=== PATIENT | female | born 1945 | race Caucasian/White ===

== ENCOUNTER 2017-02-15 05:46 | Day surgery (SDC) | END 2017-02-15 09:25 | disposition home or self-care (01) | DX: H25.11 Age-related nuclear cataract, right eye (principal); I10 Essential (primary) hypertension; E78.5 Hyperlipidemia, unspecified | CPT/HCPCS: 66984; 71010; J0171; J0690; J1100; J1580; J2250; J2405; J3010; V2632 ==

== ENCOUNTER 2017-07-10 06:20 | Emergency (ER) | END 2017-07-10 10:35 | disposition home or self-care (01) ==

== ENCOUNTER 2017-09-20 20:15 | Emergency (ER) | END 2017-09-21 01:56 | disposition left against medical advice (07) ==

== ENCOUNTER 2018-08-25 17:13 | Observation (INO) | payer OTHER ==
[~2018-08-25] VITALS: Ht 152.4 cm; Wt 64.0 kg
[~2018-08-25 17:13] MED LIST: ALBU8.5H8 INH; AMLO-145 PO; ATOR20TA38 PO; OSEL75CA23 PO
[2018-08-25] MEDS ORDERED: ASPI-903 PO (20:21)
[2018-08-25] MEDS ORDERED: SOD CHLORIDE 0.9% 500 ML IV STA (21:08)
--- NOTE | 2018-08-25 21:12 | ERD ---
ER Documentation Chief Complaint Chief Complaint CHEST PAIN RADIATING DOWN LT ARM. ARM NUMBNESS HPI 73-year-old woman complaining of unprovoked pressure-like chest discomfort beginning at rest at about noon and lasting for about 6 hours. She states the pain radiated toward her left side and was associated with nausea. She denies prior episodes, she had no fever or chills, no cough, no vomiting or diaphoresis, no headache or blurry vision. Patient does use aspirin daily. ROS All systems reviewed and are negative except as per history of present illness. Medications Home Meds Active Scripts Albuterol Sulfate* (Proair HFA*) 8.5 Gm Hfa.aer.ad, 2 PUFF INH Q4, #1 INHALER Prov:BLAINE SENA DO 07/10/17 Reported Medications Aspirin* (Aspirin* Chew) 81 Mg Tab.chew, 81 MG PO DAILY, TAB.CHEW 08/25/18 Atorvastatin Calcium* (Atorvastatin Calcium*) 20 Mg Tablet, 20 MG PO QHS, #30 TAB 02/15/17 Amlodipine Besylate* (Amlodipine Besylate*) 5 Mg Tablet, 5 MG PO DAILY 09/18/13 Discontinued Scripts Oseltamivir Phosphate* (Tamiflu*) 75 Mg Capsule, 75 MG PO BID for 5 Days, CAP Prov:BLAINE SENA DO 07/10/17 Allergies Allergies: Coded Allergies: No Known Drug Allergies (Verified Allergy, Unknown, 10/03/13) PMhx/Soc Hypertension History of Surgery: Yes (LIVER SX 2014,HYSTERECTOMY 28 YEARS AGO) Anesthesia Reaction: No Hx Neurological Disorder: No Hx Respiratory Disorders: No Hx Cardiac Disorders: Yes (HTN, Hyperlipidemia) Hx Psychiatric Problems: No Hx Miscellaneous Medical Probl: No Hx Alcohol Use: No Hx Substance Use: No Hx Tobacco Use: No Smoking Status: Never smoker FmHx Family History: No diabetes Physical Exam Vitals Vital Signs Date Temp Pulse Resp B/P (MAP) Pulse Ox O2 O2 Flow FiO2 Time Delivery Rate 08/25/18 74 15 152/67 98 Room Air 20:12 (95) 08/25/18 98.7 85 17 174/79 97 17:25 (110) Physical Exam GENERAL: Well-developed, well-nourished, well-hydrated, in no apparent distress, looks nontoxic in appearance HEENT: Moist mucous membranes, pink conjunctiva, no cervical spine tenderness or step-off deformities, no goiter, no jaundice or icterus, extraocular movements intact without pain. No submandibular induration, and no pharyngeal erythema NEURO: Alert and oriented 3, cranial nerves II through XII intact bilaterally, pupils equal round reactive to light, no focal deficits or facial asymmetry, sensation intact distally Strength 5/5 in upper and lower extremities bilaterally CARDIAC: Regular rate and rhythm, no murmurs rubs or gallops LUNGS: Clear bilaterally no wheezing crackles or stridor ABDOMEN: Soft nontender, no guarding, no rigidity, no rebound, no psoas sign no obturator sign. Normoactive bowel sounds SKIN: Warm and dry to touch, no abrasions, contusions, or hematomas, no lacerations, no ecchymosis, no target lesions, and without ulcers EXTREMITIES: No clubbing cyanosis or edema, calves are bilaterally symmetrical, no Homans sign, no popliteal cord sign. Distal pulses equal and bilateral PSYCH: Normal affect without agitation or irritability Result Diagram: 08/25/18210708/25/182107 Results 24 hrs Laboratory Tests Test 08/25/18 21:08 White Blood Count 7.7 10^3/ul Red Blood Count 4.07 10^6/ul Hemoglobin 12.4 g/dl Hematocrit 37.2 % Mean Corpuscular Volume 91.4 fl Mean Corpuscular Hemoglobin 30.5 pg Mean Corpuscular Hemoglobin Concent 33.3 g/dl Red Cell Distribution Width 14.3 % Platelet Count 129 10^3/UL Mean Platelet Volume 13.3 fl Immature Granulocytes % 0.400 % Neutrophils % 63.1 % Lymphocytes % 27.2 % Monocytes % 6.6 % Eosinophils % 2.1 % Basophils % 0.6 % Nucleated Red Blood Cells % 0.0 /100WBC Immature Granulocytes # 0.030 10^3/ul Neutrophils # 4.9 10^3/ul Lymphocytes # 2.1 10^3/ul Monocytes # 0.5 10^3/ul Eosinophils # 0.2 10^3/ul Basophils # 0.1 10^3/ul Nucleated Red Blood Cells # 0.0 10^3/ul Sodium Level 141 mmol/L Potassium Level 3.6 mmol/L Chloride Level 105 mmol/L Carbon Dioxide Level 27 mmol/L Anion Gap 9 Blood Urea Nitrogen 16 mg/dl Creatinine 0.38 mg/dl Est Glomerular Filtrat Rate mL/min mL/min Glucose Level 98 mg/dl Calcium Level 8.6 mg/dl Total Bilirubin 0.2 mg/dl Direct Bilirubin 0.00 mg/dl Indirect Bilirubin 0.2 mg/dl Aspartate Amino Transf (AST/SGOT) 27 IU/L Alanine Aminotransferase (ALT/SGPT) 23 IU/L Alkaline Phosphatase 105 IU/L Troponin I < 0.012 ng/ml Total Protein 7.2 g/dl Albumin 4.1 g/dl Globulin 3.10 g/dl Albumin/Globulin Ratio 1.32 Lipase 109 U/L Current Medications Medications Dose Sig/Candy Start Time Status Last (Trade) Ordered Route PRN Stop Time Admin Dose Reason Admin Sodium 500 ml @ Q1H STAT 08/25/18 DC 08/25/18 Chloride 500 mls/hr IV 21:08 21:19 08/25/18 22:07 Aspirin 162 mg ONCE ONCE 08/25/18 DC 08/25/18 (Aspirin) PO 21:30 21:19 08/25/18 21:31 Procedures/MDM IV line was established patient was placed on director of cardiac cath lab rhythm strip revealed a sinus rhythm at about 80 bpm with upright P and T waves. Patient was afebrile EKG performed, read by me revealed a normal sinus rhythm at 75 bpm, normal axis, narrow QRS complex, no concerning ST elevations or depressions noted Chest X-ray 1V Interpreted by me: Soft Tissue: No acute abnormalities Bones: No acute abnormalities Mediastinum/Cardiac Silhouette/Lungs: No acute abnormalities I administered aspirin 162 mg p.o. for cardioprotective measures and 500 cc normal saline IV CBC and electrolytes are normal, liver function tests were normal, troponin was negative Patient is without complaints of chest pain at this time and vital signs are normal although she was initially hypertensive and had concerning new onset chest discomfort today. She will be admitted to telemetry for continued medical management and cardiology consultation, her health insurance provided authorization for admission to [facility]. Departure Diagnosis: Primary Impression: Chest pain Chest pain type: unspecified Qualified Codes: R07.9 - Chest pain, unspecified Condition: DICK Morales MD Aug 25, 2018 21:12
[2018-08-25] MEDS ORDERED: ASPIRIN 81 MG TAB PO ONE (21:30)
[2018-08-25] MEDS ORDERED: DOCUSATE SODIUM 100 MG CAP PO PRN (22:30)
[2018-08-25] MEDS ORDERED: NACL 0.9% 3 ML SYG IV SCH (22:30)
[2018-08-25] MEDS ORDERED: BISACODYL (EC) 5 MG TAB PO PRN (22:30)
[2018-08-25] MEDS ORDERED: NITROGLYCERIN (SL) 0.4 MG TAB SL PRN (22:30)
[2018-08-25] MEDS ORDERED: ONDANSETRON 4 MG INJ IV PRN (22:30)
[2018-08-25] MEDS ORDERED: ACETAMINOPHEN 325 MG TAB PO PRN (22:30)
[2018-08-26] VITALS (7 sets, daily range): BP systolic 111–134; BP diastolic 56–66; PULSE 58–69; RESP 16–18; Ht 152.4 cm; Wt 64.0 kg
--- NOTE | 2018-08-26 00:03 | HP ---
Date/Time of Note Date/Time of Note DATE: 08/26/18 TIME: 00:03 Assessment/Plan VTE Prophylaxis SCD applied (from Nsg): Yes Pharmacological prophylaxis: NA/contraindicated Pharm contraindication: low risk/ambulating Lines/Catheters IV Catheter Type (from Nrsg): Saline Lock Assessment/Plan Hospital Course This is a 73-year female being admitted to the telemetry floor for observation for: #1 chest pain: Rule out ACS. Will check cardiac enzymes x3, the first that was negative. Will check an echocardiogram. Hemoglobin A 1C, lipid panel, TSH. PRN nitro/morphine for pain. She did receive aspirin in the ED. We will continue aspirin daily. Consider cardiology consultation if indicated. #2 hypertension: Continue Norvasc #3 hyperlipidemia: Continue statin, check lipid panel #4 DVT GI prophylaxis: SCDs, no GI prophylaxis indicated Further treatment strategy will be implemented as per the clinical course. Result Diagram: 08/25/18210708/25/182107 Results 24hrs Laboratory Tests Test 08/25/18 21:08 White Blood Count 7.7 Red Blood Count 4.07 L Hemoglobin 12.4 Hematocrit 37.2 Mean Corpuscular Volume 91.4 Mean Corpuscular Hemoglobin 30.5 Mean Corpuscular Hemoglobin Concent 33.3 Red Cell Distribution Width 14.3 Platelet Count 129 L Mean Platelet Volume 13.3 H Immature Granulocytes % 0.400 Neutrophils % 63.1 Lymphocytes % 27.2 Monocytes % 6.6 Eosinophils % 2.1 Basophils % 0.6 Nucleated Red Blood Cells % 0.0 Immature Granulocytes # 0.030 Neutrophils # 4.9 Lymphocytes # 2.1 Monocytes # 0.5 Eosinophils # 0.2 Basophils # 0.1 Nucleated Red Blood Cells # 0.0 Sodium Level 141 Potassium Level 3.6 Chloride Level 105 Carbon Dioxide Level 27 Anion Gap 9 Blood Urea Nitrogen 16 Creatinine 0.38 L Est Glomerular Filtrat Rate mL/min Glucose Level 98 Calcium Level 8.6 Total Bilirubin 0.2 Direct Bilirubin 0.00 Indirect Bilirubin 0.2 Aspartate Amino Transf (AST/SGOT) 27 Alanine Aminotransferase (ALT/SGPT) 23 Alkaline Phosphatase 105 Troponin I < 0.012 Total Protein 7.2 Albumin 4.1 Globulin 3.10 Albumin/Globulin Ratio 1.32 Lipase 109 HPI/ROS Admit Date/Time Admit Date/Time Hx of Present Illness Chief complaint: Chest pain today This is a 73-year-old female who comes in today complaining of chest pain on the left side while she was at rest at home. She states the pain occurred while she was sitting down watching TV. The pain was a pressure-like sensation in the left chest and had radiated to her left arm. She did have some nausea. She denies ever experiencing any chest pain before. She denies any shortness of breath or nausea vomiting. Denies any lower extremity edema. She does report he has a family history in her father having a heart attack Allergies: NKDA Medications: Lipitor 20 mg p.o. daily Norvasc 5 mg p.o. daily. Aspirin 81 mg daily ROS Const: As per HPI Eyes : No pain discharge or redness or change in visual acuity ENT: No pain, sore throat, congestion, congestion, dysphagia or discharge Respiratory: No shortness of breath, cough, sputum, wheezing, or pleuritic pain Cardiovascular: As per HPI GI : no change in appetite, abdominal pain, nausea, vomiting, diarrhea, constipation, or change in the color his stool Genitourinary: No dysuria, hematuria, flank pain , discharge or CVA tenderness Musculoskeletal: No joint pain, back pain, neck pain, restricted range of motion in neck or joints Skin: No rash, bruising or hives Neuro: No headache, dizziness, syncope, seizure, focal weakness Endocrine: No polyuria, polydipsia, temperature intolerance Psych: No hallucination, depression, anxiety or suicidal ideation PMH/Family/Social Past Medical History Hypertension, hyperlipidemia, history of liver disorder status post surgery? Medications Current Medications Albuterol (Ventolin Hfa) 2 puff Q4H RESP THERAPY INH ; Start 08/26/18 at 01:00 Amlodipine Besylate (Norvasc) 5 mg DAILY PO ; Start 08/26/18 at 09:00 Aspirin (Aspirin) 81 mg DAILY PO ; Start 08/26/18 at 09:00 Atorvastatin Calcium (Lipitor) 20 mg QHS PO ; Start 08/26/18 at 21:00 IV Flush (NS 3 ml) 3 ml PER PROTOCOL IV ; Start 08/25/18 at 22:30 Ondansetron HCl (Zofran Inj) 4 mg Q6H PRN IV NAUSEA/VOMITING; Start 08/25/18 at 22:30 Nitroglycerin (Nitroglycerin (Sl Tab) 0.4 Mg) 1 tab Q5M PRN SL .CHEST PAIN; Start 08/25/18 at 22:30 Acetaminophen (Tylenol Tab) 650 mg Q6H PRN PO .PAIN 1-3 OR TEMP; Start 08/25/18 at 22:30 Docusate Sodium (Colace) 100 mg Q12H PRN PO .CONSTIPATION; Start 08/25/18 at 22:30 Bisacodyl (Dulcolax) 5 mg DAILY PRN PO .CONSTIPATION; Start 08/25/18 at 22:30 Coded Allergies: No Known Drug Allergies (Verified Allergy, Unknown, 10/03/13) Past Surgical History Liver surgery?, hysterectomy Family History Significant Family History: no pertinent family hx Social History Alcohol Use: none Smoking Status: Never smoker Drug Use: none Exam/Review of Systems Vital Signs Vitals Vital Signs Date Temp Pulse Resp B/P (MAP) Pulse Ox O2 O2 Flow FiO2 Time Delivery Rate 08/25/18 64 13 143/65 98 Room Air 22:15 (91) 08/25/18 98.7 17:25 Exam Exam General: Patient is a very pleasant female currently lying in bed in no acute distress HEENT: Atraumatic, normocephalic. The pupils are equal, round and reactive. Extraocular motor are intact Neck: Supple with full range of motion. No rigidity or meningismus Chest: Nontender Lungs: Clear to auscultation bilaterally no crackles rales or wheezing Heart: Normal S1-S2, Regular rhythm and rate. No overt murmurs appreciated auscultation Abdomen: Soft , nontender, nondistended , bowel sounds are present. No guarding no rebound tenderness , No masses or organomegaly. No costovertebral temporal angle mass Extremities: Normal to inspection, no edema no cyanosis Neurologic: Normal mental status, speech normal, cranial nerves II through XII are intact, motor and sensory are intact, no focal weakness Additional Comments Normal sinus rhythm at approximately 75 bpm, no ST or T wave normality concerning for acute ischemia pROCEDURE: XR chest. CLINICAL INDICATION: Abdominal pain TECHNIQUE: A single portable view of the chest was obtained. COMPARISON: 07/10/2017 FINDINGS: Cardiomediastinal silhouette is normal. There is no pneumothorax or pleural effusion. There is no focal pulmonic consolidation. Cholecystectomy clips are s een in the right upper quadrant of the abdomen. IMPRESSION: 1. No acute pulmonary abnormality. RPTAT:HAJM Isabel Reddy Physician Date Time Electronically viewed and signed by Isabel Reddy, Physician on 08/25/2018 22 :42 RM/ CC: DICK PHILIP MD [id number] BONNIE MORALES Aug 26, 2018 00:03
[2018-08-26] MEDS: ALBUTEROL HFA 8 GM INHALER INH SCH ×2 (01:00→05:00)
[2018-08-26] MEDS ORDERED: ASPIRIN 81 MG TAB PO SCH (09:00)
[2018-08-26] MEDS ORDERED: AMLODIPINE 5 MG TAB PO SCH (09:00)
--- NOTE | 2018-08-26 11:24 | PDOCDIS ---
Discharge Instructions CONDITION [id number] Patient Condition: [id number] Guarded HOME CARE INSTRUCTIONS: [id number] Diet Instructions: [id number] Regular FOLLOW UP/APPOINTMENTS Follow-up Plan Follow-up with primary care physician in 1 week MORENA ZELAYA NP Aug 26, 2018 11:24
--- NOTE | 2018-08-26 11:28 | DS ---
Date/Time of Note Date/Time of Note DATE: 08/26/18 TIME: 11:27 Discharge Summary Admission/Discharge Info Admit Date/Time Aug 25, 2018 at 22:07 Discharge Date/Time Discharge Diagnosis Chest pain, likely musculoskeletal. Resolved. Hypertension. Stable Dyslipidemia. Stable. Patient Condition: Stable Procedures 08/25/2018. Chest x-ray. No acute pulmonary abnormality. Hospital Course 73-year-old female with a history of hypertension, dyslipidemia, here with sudden onset of left-sided chest pain while patient was watching TV. Patient did not have any palpitation, shortness of breath, nausea, vomiting, abdominal pain, loss of consciousness, dizziness, numbness, tingling, speech difficulties, vision changes or other constitutional symptoms. On exam, patient has quite localized and reproducible pain with palpation of chest wall, so most likely this is a musculoskeletal pain in origin. Troponin and EKG are negative for acute IA and duration of her symptoms are not consistent with angina or ACS. There is no need for provocative stress testing given not consistent with angina. No respiratory symptoms and low back scores to suggest PE. For the above, we decided to discharge patient with primary care follow-up. Approximately 60 m spent on coordinating the discharge on this patient. Patient was seen in collaboration with [facility] Active Scripts Albuterol Sulfate* (Proair HFA*) 8.5 Gm Hfa.aer.ad, 2 PUFF INH Q4, #1 INHALER Prov:BLAINE SENA DO 07/10/17 Reported Medications Aspirin* (Aspirin* Chew) 81 Mg Tab.chew, 81 MG PO DAILY, TAB.CHEW 08/25/18 Atorvastatin Calcium* (Atorvastatin Calcium*) 20 Mg Tablet, 20 MG PO QHS, #30 TAB 02/15/17 Amlodipine Besylate* (Amlodipine Besylate*) 5 Mg Tablet, 5 MG PO DAILY 09/18/13 Discontinued Scripts Oseltamivir Phosphate* (Tamiflu*) 75 Mg Capsule, 75 MG PO BID for 5 Days, CAP Prov:BLAINE SENA DO 07/10/17 Follow-up Plan Follow-up with primary care physician in 1 week Primary Care Provider Gabino Hernandez MD Pending Labs Laboratory Tests Test 08/25/18 21:08 08/26/18 04:06 08/26/18 04:07 08/26/18 08:51 White Blood 7.7 7.3 Count 10^3/ul (4.8-10 10^3/ul (4.8-1 .8) 0.8) Red Blood 4.07 4.16 Count 10^6/ul (4.20-5 10^6/ul (4.20- .40) 5.40) Hemoglobin 12.4 12.8 g/dl (12.0-16.0 g/dl (12.0-16. ) 0) Hematocrit 37.2 37.9 % (37.0-47.0) % (37.0-47.0) Mean 91.4 91.1 Corpuscular fl (82.0-101.0) fl (82.0-101.0 Volume ) Mean 30.5 30.8 Corpuscular pg (29.0-33.0) pg (29.0-33.0) Hemoglobin Mean 33.3 33.8 Corpuscular g/dl (32.0-37.0 g/dl (32.0-37. Hemoglobin Conc ) 0) ent Red Cell 14.3 14.0 Distribution % (11.5-14.5) % (11.5-14.5) Width Platelet Count 129 111 10^3/UL (140-41 10^3/UL (140-4 5) 15) Mean Platelet 13.3 12.1 Volume fl (7.4-10.4) fl (7.4-10.4) Immature 0.400 0.300 Granulocytes % % (0.001-0.429) % (0.001-0.429 ) Neutrophils % 63.1 63.0 % (39.0-77.0) % (39.0-77.0) Lymphocytes % 27.2 27.4 % (15.0-51.0) % (15.0-51.0) Monocytes % 6.6 6.7 % (0.0-11.0) % (0.0-11.0) Eosinophils % 2.1 % (0.0-7.0) 2.1 % (0.0-7.0) Basophils % 0.6 % (0.0-2.0) 0.5 % (0.0-2.0) Nucleated Red 0.0 0.0 Blood Cells % /100WBC (0.0-0. /100WBC (0.0-0 0) .0) Immature 0.030 0.020 Granulocytes # 10^3/ul (0.0-0. 10^3/ul (0.0-0 031) .031) Neutrophils # 4.9 4.6 10^3/ul (1.6-7. 10^3/ul (1.6-7 5) .5) Lymphocytes # 2.1 2.0 10^3/ul (0.8-2. 10^3/ul (0.8-2 9) .9) Monocytes # 0.5 0.5 10^3/ul (0.3-0. 10^3/ul (0.3-0 9) .9) Eosinophils # 0.2 0.2 10^3/ul (0.0-0. 10^3/ul (0.0-0 5) .5) Basophils # 0.1 0.0 10^3/ul (0.0-0. 10^3/ul (0.0-0 1) .1) Nucleated Red 0.0 0.0 Blood Cells # 10^3/ul (0.0-0. 10^3/ul (0.0-0 0) .0) Sodium Level 141 140 mmol/L (135-144 mmol/L (135-14 ) 4) Potassium 3.6 3.8 Level mmol/L (3.5-5.1 mmol/L (3.5-5. ) 1) Chloride Level 105 105 mmol/L (97-110) mmol/L (97-110 ) Carbon Dioxide 27 28 Level mmol/L (21-31) mmol/L (21-31) Anion Gap 9 (5-13) 7 (5-13) Blood Urea 16 mg/dl (7-20) 12 Nitrogen mg/dl (7-20) Creatinine 0.38 0.43 mg/dl (0.44-1.0 mg/dl (0.44-1. 0) 00) Est Glomerular mL/min (>60) mL/min (>60) Filtrat Rate mL/min Glucose Level 98 101 mg/dl (70-220) mg/dl (70-220) Calcium Level 8.6 8.4 mg/dl (8.4-10.2 mg/dl (8.4-10. ) 2) Total 0.2 0.6 Bilirubin mg/dl (0.2-1.3) mg/dl (0.2-1.3 ) Direct 0.00 0.00 Bilirubin mg/dl (0.00-0.2 mg/dl (0.00-0. 0) 20) Indirect 0.2 0.6 Bilirubin mg/dl (0-1.1) mg/dl (0-1.1) Aspartate Amino 27 IU/L (15-46) 24 Transf (AST/SGO IU/L (15-46) T) Alanine 23 IU/L (13-69) 23 Aminotransferas IU/L (13-69) e (ALT/SGPT) Alkaline 105 97 Phosphatase IU/L (42-121) IU/L (42-121) Troponin I < 0.012 < 0.012 < 0.012 ng/ml (0.000-0. ng/ml (0.000-0 ng/ml (0.000-0 120) .120) .120) Total Protein 7.2 7.0 g/dl (6.1-8.1) g/dl (6.1-8.1) Albumin 4.1 3.9 g/dl (3.3-4.9) g/dl (3.3-4.9) Globulin 3.10 3.10 g/dl (1.3-3.2) g/dl (1.3-3.2) Albumin/Globuli 1.32 1.25 n Ratio Lipase 109 U/L (23-300) Creatine 43 50 Kinase IU/L (23-200) IU/L (23-200) Creatine Kinase 0.7 0.4 Index Creatinine 0.29 0.22 Kinase MB ng/ml (0.0-2.4 ng/ml (0.0-2.4 (Mass) ) ) Hemoglobin A1c 5.5 % (0-5.9) Magnesium 2.1 Level mg/dl (1.7-2.5 ) Triglycerides 150 Level mg/dl (0-149) Cholesterol 169 Level mg/dl (100-200 ) LDL 94 mg/dl Cholesterol, Calculated HDL 45 Cholesterol mg/dl (33-92) Cholesterol/HDL 3.7 RATIO Ratio Thyroid 4.620 Stimulating MIU/L (0.465-4 Hormone (TSH) .680) MORENA ZELAYA NP Aug 26, 2018 11:28
[2018-08-26] MEDS ORDERED: ATORVASTATIN 20 MG TAB PO SCH (21:00)
--- NOTE | 2018-08-27 13:06 | RADRPT ---
Echocardiogram Report Patient Name: CAROLINA CAPONEPatient ID: [id number] : 1945 (73y 2m)Study Date: 08/26/2018 12:37:16 PM Gender: FAccession #: [id number] Tech: LE Location: Ref.Physician: BONNIE MORALES Height(Cm): BSA: Weight(Kg): Quality: GoodAccount #: Procedures: Echocardiographic Report: Transthoracic echocardiogram with complete 2D, M-Mode, and doppler examination. Indications: Chest Pain. Measurements: 2D/M Mode Doppler Measurement Value Normal Range Measurement Value Normal Range LVIDd 2D 4.1 [ 3.8 - 5.2 ] cm ALESSANDRO Vmax 2.0 [ 2.0 - 4.0 ] cm2 LVIDs 2D 2.7 [ 2.2 - 3.5 ] cm AV Mean Sven 0.9 [ 70.0 - 90.0 ] cm/sec LVPWd 2D 1.1 [ 0.6 - 0.9 ] cm AV Mean PG 4.0 [ 2.0 - 4.0 ] mmHg IVSd 2D 1.1 [ 0.6 - 0.9 ] cm AV Peak Sven 1.3 [ 100.0 - 170.0 ] cm/sec IVS/LVPW 2D 1.0 ratio AV Peak PG 6.0 [ 2.0 - 9.0 ] mmHg LVOT Diam 1.9 [ 2.1 - 2.5 ] cm AV VTI 31.0 cm LVOT Area 2.8 cm2 LVOT Peak Sven 0.9 [ 70.0 - 110.0 ] cm/sec LVOT Peak PG 3.0 [ 2.0 - 6.0 ] mmHg MV E Peak Sven 0.7 [ 60.0 - 130.0 ] cm/sec MV A Peak Sven 1.0 [ 100.0 - 120.0 ] cm/sec MV E/A 0.7 [ 0.8 - 1.5 ] ratio MV Decel Time 261 [ 104 - 258 ] msec Lat E` Sven 0.1 [ 10.0 - 15.0 ] cm/sec Med E` Sven 0.0 cm/sec MV E/A 0.7 [ 0.8 - 1.5 ] ratio TR Peak Sven 2.1 [ 100.0 - 280.0 ] cm/sec TR Peak PG 17.0 mmHg PV Peak Sven 0.7 [ 40.0 - 80.0 ] cm/sec PV Peak PG 2.0 mmHg RA Pressure 3.0 mmHg Findings: Left Ventricle: Normal left ventricular systolic function. Normal left ventricular cavity size. Normal left ventricular wall thickness. Ejection fraction is visually estimated at 60 %. Tissue Doppler/Mitral Doppler indices are consistent with impaired relaxation (Stage I diastolic dysfunction). Right Ventricle: Normal right ventricular size. Normal right ventricular systolic function. Left Atrium: There is mild enlargement of left atrium. Right Atrium: There is mild enlargement of right atrium. Mitral Valve: Mild mitral annular calcification. Trace-mild mitral regurgitation. Aortic Valve: Normal appearance of the aortic valve. No significant aortic stenosis or insufficiency. Tricuspid Valve: Normal appearance of the tricuspid valve. Estimated peak PA systolic pressure 20 mmHg. There is trace tricuspid regurgitation. Pulmonic Valve: Normal pulmonic valve appearance. There is trace pulmonic regurgitation. Pericardium: Normal pericardium with no significant pericardial effusion. Aorta: Normal aortic root. IVC: Normal size and normal respiratory collapse consistent with normal right atrial pressure. Conclusions: Normal left ventricular systolic function. Normal left ventricular cavity size. Normal left ventricular wall thickness. Ejection fraction is visually estimated at 60 %. Tissue Doppler/Mitral Doppler indices are consistent with impaired relaxation (Stage I diastolic dysfunction). No significant valvular stenosis or regurgitation seen. Estimated peak PA systolic pressure 20 mmHg. Normal size and normal respiratory collapse consistent with normal right atrial pressure. Electronically Signed By: Kit Nava 2018-08-27 13:05:08 PST
== END 2018-08-26 14:47 | disposition home or self-care (01) ==
LOC: E/R 17:13 → TEL 22:07
PROVIDERS: ADMIT Family Medicine; ATTEND Family Medicine
DX: R07.9 Chest pain, unspecified (principal); I10 Essential (primary) hypertension; E78.5 Hyperlipidemia, unspecified; Z79.82 Long term (current) use of aspirin
CPT/HCPCS: 71045; 80053; 80061; 82550; 82553; 82607; 82652; 83036; 83690; 83735; 84443; 84484; 85025; 93306; G0378; J7040; 93005